=== PATIENT | male | born 1985 | race Caucasian/White ===

== ENCOUNTER 2021-09-18 18:24 | Observation (INO) | payer OTHER, SELFPAY ==
[2021-09-18] VITALS (9 sets, daily range): BP systolic 121–142; BP diastolic 73–90; PULSE 66–75; RESP 16–24; TEMP 36.6–36.7; O2SAT 96–99; BMI 33.4
--- NOTE | 2021-09-18 19:03 | DI.CT.S_ITS ---
PROCEDURE: CT HEAD/BRAIN WO CON INDICATIONS: Positive BE-FAST, Stroke symptoms TECHNIQUE: Noncontrast 4.5 mm thick angled axial sections acquired from the foramen magnum to the vertex, with coronal and sagittal reformats. For radiation dose reduction, the following was used: automated exposure control, adjustment of mA and/or kV according to patient size. COMPARISON: None. FINDINGS: Image quality: Excellent. CSF spaces: Basal cisterns are patent. No extra-axial fluid collections. Ventricles are normal in size and shape. Brain: No midline shift. No intracranial masses or hemorrhage. Jimenez-white matter interface is normal. Skull and face: Calvarium and visualized facial bones are intact, without suspicious lesions. Sinuses: Visualized sinuses and mastoids are clear. IMPRESSION: No acute intracranial disease process. Dictated by: Angela Jackson MD, PhD on 09/18/2021 at 19:24 Approved by: Angela Jackson MD, PhD on 09/18/2021 at 19:26
--- NOTE | 2021-09-18 19:03 | DI.CT.S_ITS ---
PROCEDURE: CT ANGIO HEAD AND NECK INDICATIONS: Possible stroke TECHNIQUE: After the administration of intravenous contrast, 1 mm thick sections acquired from the aortic arch through the [place] of [place]. Post-contrast 4.5 mm thick sections then re-acquired from the foramen magnum to the vertex. 3-dimensional jedovqj-zgeuhbdor-ohcztssuea (MIP) and/or volume rendering reformats were acquired of the central intracranial vasculature and neck separately. For radiation dose reduction, the following was used: automated exposure control, adjustment of mA and/or kV according to patient size. COMPARISON: None. FINDINGS: Image quality: Excellent. BRAIN: CSF spaces: Ventricles are normal in size and shape. Basal cisterns are patent. No extra-axial fluid collections. Brain: No midline shift. No intracranial bleeds or masses. Jimenez-white matter interface appears intact. Skull and face: Calvarium and facial bones appear intact, without suspicious lesions. Orbits appear normal. Sinuses: Mucosal thickening noted in the right maxillary sinus. The mastoids are clear. HEAD CT ANGIOGRAPHY: Anterior circulation: Intracranial internal carotid arteries are normal in size and flow. The flow within the paired anterior cerebral arteries is normal and symmetric. The flow within the middle cerebral arteries is normal and symmetric. The anterior communicating artery is seen. No aneurysms are seen. Posterior circulation: Visualized portions of the vertebral arteries demonstrate normal caliber, and join to form a normal appearing basilar artery. Flow within the posterior cerebral arteries is normal and symmetric. No aneurysms are seen. Dural sinuses demonstrate normal postcontrast enhancement. NECK CT ANGIOGRAPHY: Carotid system: The great vessels demonstrate a conventional anatomy as they arise from the aortic arch. The origins of the common carotid arteries appear patent. The common carotid arteries demonstrate normal caliber and courses. The bifurcation regions are both widely patent. The internal carotid arteries demonstrate normal calibers and courses. Posterior circulation: The origins of the vertebral arteries both appear widely patent. The more superior extracranial portions of both vertebral arteries also demonstrate normal courses and calibers. They join to form a normal appearing basilar artery. Soft tissues: Visualized neck soft tissues demonstrate no suspicious abnormalities. Small patchy ground-glass opacities noted in the lungs bilaterally, right greater than left. Bones: No suspicious bony lesions. Visualized cervical spine appears normally aligned. IMPRESSION: 1. No acute intracranial disease process. 2. No large vessel occlusion, vascular stenosis, vascular dissection or aneurysm. 3. Patchy small ground-glass opacities in the lungs bilaterally, right greater than left. Finding is nonspecific can be related to atypical/viral pneumonia. Any quantitative measurements of stenosis were performed using NASCET criteria. Dictated by: Angela Jackson MD, PhD on 09/18/2021 at 19:34 Approved by: Angela Jackson MD, PhD on 09/18/2021 at 19:40
--- NOTE | 2021-09-18 19:03 | DI.RAD.S_ITS ---
PROCEDURE: XR CHEST 1V INDICATIONS: Possible stroke TECHNIQUE: One view of the chest was acquired. COMPARISON: [facility], , CHEST 2 VIEW, 05/17/2017, 15:59. FINDINGS: Surgical changes and devices: None. Lungs and pleura: Lungs are clear. No pleural effusions or pneumothorax. Mediastinum: Mediastinal contours appear normal. Heart size is normal. Bones and chest wall: No suspicious bony lesions. Overlying soft tissues appear unremarkable. IMPRESSION: No acute cardiopulmonary disease process. Dictated by: Angela Jackson MD, PhD on 09/18/2021 at 19:33 Approved by: Angela Jackson MD, PhD on 09/18/2021 at 19:34
[2021-09-18 19:22] LABS: Add Manual Diff / Slide Review NO; Basophils Absolute Auto 100 /uL (0-100); Basophils Percent Auto 1.5 % (0-2); Eosinophils Absolute Auto 200 /uL (0-450); Hematocrit 42.7 % (41-53); Hemoglobin 14.6 g/dL (13.5-17.5); Lymphocytes Absolute Auto 3000 /uL (1100-4500); Lymphocytes Percent Auto 34.5 % (25-40); Mean Corpuscular HGB Conc 34.2 % (30-36); Mean Corpuscular Hemoglobin 30.9 PG (26-34); Mean Corpuscular Volume 90.1 fL (80-100); Monocytes Absolute Auto 600 /uL (0-900); Neutrophils Absolute Auto 4800 /uL (1500-7000); Platelet Count 256 X10^3/uL (150-400); Red Blood Cell Count 4.74 X10^6/uL (4.5-5.9); Red Cell Distribution Width 13.1 % (11.6-14.8); White Blood Cell Count 8.7 X10^3/uL (4.5-11.0)
[2021-09-18 19:30] LABS: Prothrombin Time 11.1 SECONDS (10.1-12.7)
[2021-09-18 19:32] LABS: PTT Partial Thromboplastin Tim 30 SECONDS (26.4-36.2)
[2021-09-18 19:34] LABS: Alanine Aminotransferase 16 IU/L (<50); Albumin 4.5 g/dL (3.5-5.0); Albumin Globulin Ratio 1.4 (1.0-2.8); Alkaline Phosphatase 72 U/L (38-126); Aspartate Aminotransferase 27 IU/L (17-59); BUN Creatinine Ratio 11.2 (6-22); Bilirubin Total 0.5 mg/dL (0.2-1.3); Blood Urea Nitrogen 13 mg/dL (9-20); Calcium 8.6 mg/dL (8.4-10.2); Carbon Dioxide 28 mmol/L (22-32); Chloride 104 mmol/L (98-107); Creatine Kinase 209 U/L (55-170); Estimated Glomerular Filt Rate > 60 mL/min (>60); Globulin 3.3 g/dL (1.7-4.1); Glucose 96 mg/dL (70-100); HEMOLYSIS < 15 (0-50); Magnesium 2.3 mg/dL (1.6-2.3); Potassium 3.9 mmol/L (3.4-5.1); Sodium 139 mmol/L (137-145); Total Protein 7.8 g/dL (6.3-8.2)
[2021-09-18 19:45] LABS: Troponin I < 0.012 ng/mL (0.01-0.034)
[2021-09-18 19:49] LABS: CKMB % Relative Index 0.6 % (1.5-5.0); Creatine Kinase MB 1.19 ng/mL (<2.37)
[2021-09-18 20:04] LABS: COVID19 -Nasal RAPID Negative (Negative)
--- NOTE | 2021-09-18 20:06 | ED.NEUROSD ---
HPI - Neuro Symptoms/Deficit General Chief Complaint: Neuro Symptoms/Deficit Stated Complaint: Possible TIA Time Seen by Provider: 09/18/21 19:03 Source: patient Mode of arrival: Ambulatory History of Present Illness HPI Narrative: 35-year-old male nonsmoker with noncontributory medical history presents with his for evaluation of neurologic symptoms this morning. He had gone to sleep in his normal state of health and woke up in his normal state of health. 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 He did not have any symptoms of dizziness, weakness or lightheadedness nor of chest pain or unexplained shortness of breath during the fitness test. When he was attempting to drive home he had to tube puller because he noticed that his left arm was numb, tingling and not working appropriately. Additionally he was having trouble speaking, stating he knew what he wanted to say but words were not coming out. His states that he had left-sided facial weakness and slurring of words as well. Patient does have a history of headaches previously but states he was not having pain during this episode. His symptoms had resolved many hours prior to his arrival. He is not activated as a code stroke given lack of symptoms on arrival On Anticoagulants: No Related Data Home Medications Medication Instructions Recorded Confirmed No Known Home Medications 09/19/21 09/19/21 Allergies Allergy/AdvReac Type Severity Reaction Status Date / Time No Known Allergies Allergy Uncoded 08/14/17 12:50 Review of Systems Review of Systems Narrative: GENERAL: Denies chills, fatigue, malaise, fever, sweats. HEENT: Denies sinus pain, ear pain, sore throat, difficulty swallowing, dizziness. RESPIRATORY: Denies dyspnea, cough, wheezing, hemoptysis, sputum. CARDIOVASCULAR: Denies chest pain, palpitations, orthopnea, edema, GASTROINTESTINAL: Denies nausea, vomiting, abdominal pain, diarrhea, constipation, melena. : Denies dysuria, frequency, incontinence, hematuria, urinary retention. MUSCULOSKELETAL: denies weakness, joint pain, or bony pain SKIN: Denies rash, skin lesions, or other NEUROLOGIC: See HPI PSYCHIATRIC: No concerning psychosocial issues. 12 point review of systems is negative except for those stated above Hematologic/Lymphatic On Anticoagulants: No Patient History Social History household members: spouse and children Smoking Status: Never smoker alcohol intake: current Exam Narrative Exam Narrative: GENERAL: [35 year old patient appears stated age. Well-developed patient, in mild distress. HEAD: Atraumatic. Normocephalic. EYES: Pupils equal round and reactive. Extraocular motions intact. No scleral icterus. No injection or drainage. ENT: Nose without bleeding, purulent drainage. Throat without erythema, tonsillar hypertrophy or exudate. Airway patent. NECK: Trachea midline. Non tender CARDIOVASCULAR: Regular rate and rhythm without murmurs, gallops, or rubs. RESPIRATORY: Clear to auscultation. Breath sounds equal bilaterally. No wheezes, rales, or rhonchi. GASTROINTESTINAL: Abdomen soft, non-tender, nondistended. EXTREMITIES: No edema or joint tenderness. BACK: Nontender without deformity or crepitance. No flank tenderness. NEURO: AOx3. SKIN: No rash or erythema of visible areas Initial Vital Signs Initial Vital Signs: Vital Signs Temperature 98.1 F 09/18/21 18:27 Pulse Rate 75 09/18/21 18:27 Respiratory Rate 18 09/18/21 18:27 Blood Pressure 142/90 H 09/18/21 18:27 Pulse Oximetry 98 09/18/21 18:27 Course Orders Ordered: ED Orders 09/18/21 19:03 CT angio head and neck Stat CT head/brain wo con Stat XR chest 1V Stat 09/18/21 19:05 Complete Blood Count AUTO DIFF Stat Comprehensive Metabolic Panel Stat Magnesium Stat Partial Thromboplastin Time Stat Prothrombin Time INR Stat Troponin & CK Cardiac Panel Stat 09/18/21 19:08 COVID19 -Nasal RAPID/Pre-Proc Stat Acetaminophen (Acetaminophen 325 Mg Tablet) 650 mg PO Q6HR PRN PRN Reason: pain, fever Aspirin (Aspirin Ec 81 Mg Tablet) 81 mg PO DAILY [facility] Pravastatin Sodium (Pravastatin 20 Mg Tablet) 40 mg PO BEDTIME CHLOE Last Admin: 09/18/21 22:29 Dose: 40 mg Documented by: CORAZON Vital Signs Vital signs: Vital Signs - 8 hr 09/18/21 19:00 09/18/21 19:30 09/18/21 20:00 Pulse Rate 69 66 67 Respiratory Rate 20 19 Pulse Oximetry 99 98 98 MDM - Neuro Symptoms/Deficit Lab Data Result diagrams: 09/18/21 19:05 09/18/21 19:05 Labs: Lab Results 09/18/21 09/18/21 09/18/21 Range/Units 19:05 19:05 19:05 WBC 8.7 (4.5-11.0) X10^3/uL RBC 4.74 (4.5-5.9) X10^6/uL Hgb 14.6 (13.5-17.5) g/dL Hct 42.7 (41-53) % MCV 90.1 (80-100) fL MCH 30.9 (26-34) PG MCHC 34.2 (30-36) % RDW 13.1 (11.6-14.8) % Plt Count 256 (150-400) X10^3/uL Neut % (Auto) 55.0 (50-75) % Lymph % (Auto) 34.5 (25-40) % Lucas % (Auto) 7.0 (3-14) % Eos % (Auto) 2.0 (2-4) % Baso % (Auto) 1.5 (0-2) % Neut # (Auto) 4800 (7281-1800) /uL Lymph # (Auto) 3000 (0963-7995) /uL Lucas # (Auto) 600 (0-900) /uL Eos # (Auto) 200 (0-450) /uL Baso # (Auto) 100 (0-100) /uL PT 11.1 (10.1-12.7) SECONDS INR 1.0 (0.9-1.3) APTT 30 (26.4-36.2) SECONDS Sodium 139 (137-145) mmol/L Potassium 3.9 (3.4-5.1) mmol/L Chloride 104 (98-107) mmol/L Carbon Dioxide 28 (22-32) mmol/L BUN 13 (9-20) mg/dL Creatinine 1.16 (0.66-1.25) mg/dL Estimated GFR > 60 (>60) mL/min BUN/Creatinine Ratio 11.2 (6-22) Glucose 96 (70-100) mg/dL Calcium 8.6 (8.4-10.2) mg/dL Magnesium 2.3 (1.6-2.3) mg/dL Total Bilirubin 0.5 (0.2-1.3) mg/dL AST 27 (17-59) IU/L ALT 16 (<50) IU/L Alkaline Phosphatase 72 (38-126) U/L Total Creatine Kinase 209 H (55-170) U/L CK-MB (CK-2) 1.19 (<2.37) ng/mL CK-MB (CK-2) Rel Index 0.6 L (1.5-5.0) % Troponin I < 0.012 (0.01-0.034) ng/mL Total Protein 7.8 (6.3-8.2) g/dL Albumin 4.5 (3.5-5.0) g/dL Globulin 3.3 (1.7-4.1) g/dL Albumin/Globulin Ratio 1.4 (1.0-2.8) SARS-CoV-2 (PCR) (Negative) 09/18/21 Range/Units 19:08 WBC (4.5-11.0) X10^3/uL RBC (4.5-5.9) X10^6/uL Hgb (13.5-17.5) g/dL Hct (41-53) % MCV (80-100) fL MCH (26-34) PG MCHC (30-36) % RDW (11.6-14.8) % Plt Count (150-400) X10^3/uL Neut % (Auto) (50-75) % Lymph % (Auto) (25-40) % Lucas % (Auto) (3-14) % Eos % (Auto) (2-4) % Baso % (Auto) (0-2) % Neut # (Auto) (6441-8088) /uL Lymph # (Auto) (7895-9261) /uL Lucas # (Auto) (0-900) /uL Eos # (Auto) (0-450) /uL Baso # (Auto) (0-100) /uL PT (10.1-12.7) SECONDS INR (0.9-1.3) APTT (26.4-36.2) SECONDS Sodium (137-145) mmol/L Potassium (3.4-5.1) mmol/L Chloride (98-107) mmol/L Carbon Dioxide (22-32) mmol/L BUN (9-20) mg/dL Creatinine (0.66-1.25) mg/dL Estimated GFR (>60) mL/min BUN/Creatinine Ratio (6-22) Glucose (70-100) mg/dL Calcium (8.4-10.2) mg/dL Magnesium (1.6-2.3) mg/dL Total Bilirubin (0.2-1.3) mg/dL AST (17-59) IU/L ALT (<50) IU/L Alkaline Phosphatase (38-126) U/L Total Creatine Kinase (55-170) U/L CK-MB (CK-2) (<2.37) ng/mL CK-MB (CK-2) Rel Index (1.5-5.0) % Troponin I (0.01-0.034) ng/mL Total Protein (6.3-8.2) g/dL Albumin (3.5-5.0) g/dL Globulin (1.7-4.1) g/dL Albumin/Globulin Ratio (1.0-2.8) SARS-CoV-2 (PCR) Negative (Negative) Imaging Data CT scan - head: Radiologist's Impression: [place] [address] CT Scan Report Signed Patient: Valdemar Wan MR#: [id number] : 1985 Acct:[id number] Age/Sex: 35 / M Date of Service: 09/18/21 Loc: Accession Number: [id number] ?? Procedure: CT head/brain wo con Ordering Provider: Aubrey Villatoro D.O. PROCEDURE:? CT HEAD/BRAIN WO CON ? INDICATIONS:? Positive BE-FAST, Stroke symptoms ? TECHNIQUE:? Noncontrast 4.5 mm thick angled axial sections acquired from the foramen magnum to the vertex, with coronal and sagittal reformats.? For radiation dose reduction, the following was used:? automated exposure control, adjustment of mA and/or kV according to patient size.? ? COMPARISON:? None. ? FINDINGS:? Image quality:? Excellent.? ? CSF spaces:? Basal cisterns are patent.? No extra-axial fluid collections.? Ventricles are normal in size and shape.? ? Brain:? No midline shift.? No intracranial masses or hemorrhage.? Jimenez-white matter interface is normal.? ? Skull and face:? Calvarium and visualized facial bones are intact, without suspicious lesions.? ? Sinuses:? Visualized sinuses and mastoids are clear.? ? IMPRESSION:? No acute intracranial disease process. ? ? Dictated by: Angela Jackson MD, PhD on 09/18/2021 at 19:24 ? ? Approved by: Angela Jackson MD, PhD on 09/18/2021 at 19:26 ? CTA - brain/neck: Radiologist's Impression: [place] [address] CT Scan Report Signed Patient: Valdemar Wan MR#: [id number] : 1985 Acct:[id number] Age/Sex: 35 / M Date of Service: 09/18/21 Loc: ED Accession Number: [id number] ?? Procedure: CT head/brain wo con Ordering Provider: Aubrey Villatoro D.O. PROCEDURE:? CT HEAD/BRAIN WO CON ? INDICATIONS:? Positive BE-FAST, Stroke symptoms ? TECHNIQUE:? Noncontrast 4.5 mm thick angled axial sections acquired from the foramen magnum to the vertex, with coronal and sagittal reformats.? For radiation dose reduction, the following was used:? automated exposure control, adjustment of mA and/or kV according to patient size.? ? COMPARISON:? None. ? FINDINGS:? Image quality:? Excellent.? ? CSF spaces:? Basal cisterns are patent.? No extra-axial fluid collections.? Ventricles are normal in size and shape.? ? Brain:? No midline shift.? No intracranial masses or hemorrhage.? Jimenez-white matter interface is normal.? ? Skull and face:? Calvarium and visualized facial bones are intact, without suspicious lesions.? ? Sinuses:? Visualized sinuses and mastoids are clear.? ? IMPRESSION:? No acute intracranial disease process. ? ? Dictated by: Angela Jackson MD, PhD on 09/18/2021 at 19:24 ? ? Approved by: Angela Jackson MD, PhD on 09/18/2021 at 19:26 ? Stroke Core Measures Exclusion Criteria TPA in CVA: Symptom Onset >3 or 4.5 Hours Discharge Plan Departure Patient Disposition: Admitted As Inpatient Clinical Impression: Brain TIA Admit Date/Time: 09/18/21 20:20 Admit Provider: Steve Norwood
--- NOTE | 2021-09-18 20:32 | DI.MRI.S_ITS ---
PROCEDURE: MR HEAD/BRAIN WO CON INDICATIONS: tia TECHNIQUE: Noncontrast axial T1 spin echo, axial T2 fast spin echo, sagittal and axial FLAIR, coronal T2 fast spin echo, axial gradient echo, axial diffusion and ADC through the brain. COMPARISON: [facility], CT, CT ANGIO HEAD AND NECK, 09/18/2021, 19:04. [facility], CT, CT HEAD/BRAIN WO CON, 09/18/2021, 19:04. FINDINGS: Image quality: Excellent. CSF Spaces: Basal cisterns are patent. No extra-axial fluid collections. Ventricles are normal in size and shape. Brain: No intracranial masses or hemorrhage. Jimenez/white matter interface is normal. Brainstem appears normal. Small foci of restricted diffusion noted in the right frontal and parietal lobes compatible with acute lacunar infarcts. No chronic ischemic insults. Normal intravascular flow voids are present. Skull and face: Calvarium has normal marrow signal. Orbits appear normal. Sinuses: Mild mucosal thickening noted in the floor of the right maxillary sinus. The mastoids are clear. IMPRESSION: Multiple small acute lacunar infarcts involving the right frontal and parietal lobes. No intracranial hemorrhage. Dictated by: Angela Jackson MD, PhD on 09/19/2021 at 7:57 Approved by: Angela Jackson MD, PhD on 09/19/2021 at 8:01
--- NOTE | 2021-09-18 21:22 | DI.ECHO.S_ITS ---
[facility] +---------+ : : [address] [place] [place] : : : : [id number] : : : : Phone: [phone]+ Echocardiogram Report + + :Name: SALLY BERRY Study Date: 09/19/2021 Height: 68 in : :[facility] ReadingLocation: Weight: 220 lb : : Gender: Male BSA: 2.1 m2 : :: 1985 Age: 35 yrs BP: 136/84 mmHg: :Reason For Study: TIA : :Ordering Physician: JEFFREY, : :RUPINDER Performed By: Kimberly Stark : :Referring: RUPINDER MURPHY : + + Interpretation Summary 1) Normal left ventricular thickness, size, wall motion, and systolic function (EF 55-60%). 2) Normal right ventricular size and function. 3) No significant valvular abnormalities. 4) Injection of contrast documented no interatrial shunt. 5) No prior Echo available for comparison. Procedure: A two-dimensional transthoracic echocardiogram with color flow and Doppler was performed. The study quality was technically adequate. There is no prior echocardiogram noted for this patient. A saline contrast injection was performed to assess for cardiac shunting. The injection was performed through an intravenous line in the right arm. The patient was in sinus rhythm with heart rates between 53-63 bpm during the exam. Left Ventricle: The left ventricle is normal in size and wall thickness. The ejection fraction is estimated to be 55-60%. Left ventricular systolic function appears normal without focal wall motion abnormalities. Diastolic parameters suggest probable normal left ventricular diastolic function and normal filling pressures. Right Ventricle: The right ventricle is normal in size and function. Atria: The left atrial size is normal. Right atrial size is normal. There is no Doppler evidence for an interatrial shunt. Injection of contrast documented no interatrial shunt. Mitral Valve: The mitral valve is normal in structure and function. There is trace mitral regurgitation. Aortic Valve: The aortic valve is trileaflet. The aortic valve opens well. There is no aortic valve stenosis. No aortic regurgitation is present. Tricuspid Valve: The tricuspid valve is normal in structure and function. No tricuspid regurgitation. Pulmonary artery pressures cannot be estimated because of the lack of a measurable TR jet velocity. Pulmonic Valve: The pulmonic valve is not well visualized. There is no pulmonic valvular regurgitation. Great Vessels: The aortic root is normal size. The dimensions of the ascending aorta are normal. The IVC is of normal diameter and collapses greater than 50% with a sniff. This suggests a low right atrial pressure of 3 mm Hg. Pericardium/ Pleura There is no pericardial effusion. There is no pleural effusion. MMode/2D Measurements & Calculations LVIDd: 4.9 cm LVOT diam: 2.2 cm LVIDs: 3.2 cm Ao root diam: 3.6 cm FS: 34.0 % asc Aorta Diam: 3.2 cm IVSd: 0.78 cm Ao Arch Diam (Prox Trans): 2.5 cm LVPWd: 0.93 cm LV cruz. diameter/BSA (cm/m^2): 2.3 LV sys. diameter/BSA (cm/m^2): 1.5 LA A2 area: 19.0 cm2 RA long axis: 5.0 cm LA A4 area: 17.7 cm2 RA area: 15.9 cm2 LA length (vol): 5.4 cm RA vol: 42.7 ml LA vol: 52.7 ml RA : 20.1 ml/m2 LA vol index: 24.8 ml/m2 IVC diam: 1.4 cm RVD1 (basal): 3.9 cm TAPSE: 1.9 cm Doppler Measurements & Calculations Ao V2 max: 91.4 cm/sec LVOT Max Johnie: 86.2 cm/sec Ao V2 mean: 63.3 cm/sec LV V1 max P.0 mmHg Ao max P.3 mmHg LV V1 VTI: 17.8 cm Ao mean P.8 mmHg MARICRUZ(I,D): 2.8 cm2 Ao V2 VTI: 24.3 cm MARICRUZ(V,D): 3.6 cm2 sev ratio: 0.73 MARICRUZ indexed to BSA (cm^2/m^2): 1.3 MV E max johnie: 66.8 cm/sec PA V2 max: 87.2 cm/sec MV A max johnie: 40.7 cm/sec PA V2 mean: 59.1 cm/sec MV E/A: 1.6 PA mean P.6 mmHg Med Peak E' Johnie: 8.7 cm/sec PA pr(Accel): 13.9 mmHg E/E' med: 7.7 Lat Peak E' Johnie: 11.2 cm/sec E/E' lat: 6.0 E/e' average: 6.8 MV dec time: 0.21 sec SV(LVOT): 68.6 ml Reading Physician:09:48 AM
[2021-09-18] MEDS: PRAVASTATIN 20 MG TABLET 40 MG PO (22:29)
--- NOTE | 2021-09-19 02:48 | PM.HP.1 ---
History of Present Illness History of Present Illness Date Patient Seen: 09/18/21 Time Patient Seen: 22:00 Chief complaint: Possible TIA Narrative: Mr. Noe Wynn is a 35M with no significant PMH who presents with transient extremity numbness and aphasia. 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 He had no issues during the test. After this he began to have his middle and ring finger on his left hand start being numb and tingling. He noted the numbness was from his fingers to his shoulder. He noted motor inability to use his finger correctly. He also stated he was thinking clearly but could not say words correctly. His noted this as well and noted he had facial droop on the left. This lasted approximately 5-10 minutes before resolving on its own. He notes no similar episodes previously, however he has had two episodes this year of frontal headache that is associated with left eye monocular lower lateral quadrantanopia that is also transient. He has had no other neurologic symptoms during those episodes. In the ED workup was done, vitals notable for slightly high blood pressure at 142/90. Labs notable for WBC 8.7, hgb 14.6, plts 256. Creatinine 1.16. NIH 0. CT head showed no acute process. CTA head/neck showed no acute process. As his symptoms resolved hours before arrival and he had no neurologic symptoms when he arrived he was not activated as a code stroke. He was ordered for aspirin and statin. He was admitted for further treatment. Family history: grandparent with glioblastoma Social history: smoking, no subtance abuse, occasional alcohol Patient History Family & Social History Social History: household members spouse,children Prior Living Arrangements House Safety & Behavioral: Feels Safe in Current No Environment Been Physically Hurt or No Threatened By a Person Tobacco & Substance use: Smoking Status Never smoker alcohol intake current alcohol intake frequency holiday/special occasion Substance Use Type does not use Meds Home Medications and Allergies Home Medications Medication Instructions Recorded Confirmed Type No Known Home Medications 09/19/21 09/19/21 History Allergies Allergy/AdvReac Type Severity Reaction Status Date / Time No Known Allergies Allergy Uncoded 08/14/17 12:50 Review of Systems Review of Systems Narrative: 14 systems reviewed and negative aside from what is noted in HPI Exam Vital Signs (past 8 hours): - 09/18/21 19:00 09/18/21 19:30 09/18/21 20:00 Temperature Pulse Rate 69 66 67 Respiratory Rate 20 19 Blood Pressure Pulse Oximetry 99 98 98 09/18/21 20:28 09/18/21 20:30 09/18/21 21:00 Temperature Pulse Rate 67 67 66 Respiratory Rate 24 17 16 Blood Pressure 121/79 126/80 136/84 Pulse Oximetry 97 97 97 09/18/21 21:10 09/18/21 23:50 Temperature 97.9 F 97.9 F Pulse Rate 71 75 Respiratory Rate 18 18 Blood Pressure 131/80 127/73 Pulse Oximetry 96 97 Oxygen Delivery Method Room Air Oxygen Flow Rate 0 Narrative Exam Narrative: GEN: no acute distress HEENT: moist mucous membranes, PERRL NECK: trachea midline, no JVD CV: regular rate and rhyhtm, no murmurs PULM: clear bilaterally ABD: soft, nontender, nondistende, no organomegaly, normal bowel sounds EXT: warm and well perfused with no edema NEURO: awake, alert, oriented, no focal deficits noted, CN 2-12 intact, sensation intact, rapid alternating movements intact, heel to rainey normal, 5/5 strength upper and lower extremities Objective Labs Result Diagrams: 09/19/21 04:18 09/19/21 04:18 Labs: Laboratory Results - last 24 hr 09/18/21 09/18/21 09/18/21 19:05 19:05 19:05 WBC 8.7 RBC 4.74 Hgb 14.6 Hct 42.7 MCV 90.1 MCH 30.9 MCHC 34.2 RDW 13.1 Plt Count 256 Neut % (Auto) 55.0 Lymph % (Auto) 34.5 [place] % (Auto) 7.0 Eos % (Auto) 2.0 Baso % (Auto) 1.5 Neut # (Auto) 4800 Lymph # (Auto) 3000 [place] # (Auto) 600 Eos # (Auto) 200 Baso # (Auto) 100 PT 11.1 INR 1.0 APTT 30 Sodium 139 Potassium 3.9 Chloride 104 Carbon Dioxide 28 BUN 13 Creatinine 1.16 Estimated GFR > 60 BUN/Creatinine Ratio 11.2 Glucose 96 Calcium 8.6 Magnesium 2.3 Total Bilirubin 0.5 AST 27 ALT 16 Alkaline Phosphatase 72 Total Creatine Kinase 209 H CK-MB (CK-2) 1.19 CK-MB (CK-2) Rel Index 0.6 L Troponin I < 0.012 Total Protein 7.8 Albumin 4.5 Globulin 3.3 Albumin/Globulin Ratio 1.4 SARS-CoV-2 (PCR) 09/18/21 19:08 WBC RBC Hgb Hct MCV MCH MCHC RDW Plt Count Neut % (Auto) Lymph % (Auto) [place] % (Auto) Eos % (Auto) Baso % (Auto) Neut # (Auto) Lymph # (Auto) [place] # (Auto) Eos # (Auto) Baso # (Auto) PT INR APTT Sodium Potassium Chloride Carbon Dioxide BUN Creatinine Estimated GFR BUN/Creatinine Ratio Glucose Calcium Magnesium Total Bilirubin AST ALT Alkaline Phosphatase Total Creatine Kinase CK-MB (CK-2) CK-MB (CK-2) Rel Index Troponin I Total Protein Albumin Globulin Albumin/Globulin Ratio SARS-CoV-2 (PCR) Negative Assessment & Plan Assessment & Plan narrative: Mr. Noe Wynn presented to the hospital with sudden onset left sided upper extremity numbness, left hand clumsindess and dysarthria that resolved quickly. 1. Probable TIA, acute -patient's symptoms completely resolved by the time in ED -initial NIH 0 -CT head and CT angio head/neck with no acute process -order MRI to rule out CVA or other intracranial process, order ECHO -keep NIH q4 -order aspirin and statin -possible PT/OT speech eval -lipids and a1c to be checked CODE: Full Proxy: Joan Wynn, spouse I have utilized all available resources to reconcile the patient's home medications Time Spent With Patient Critical Care time: I spent a total of [] minutes of critical care time on this patient's care today; this time is exclusive of procedural time. Quality MIPS - Admit I confirm the patient?s Advance Care Plan is present, Code status is documented, Surrogate decision maker is in patient?s record [If Yes, STOP here]: Yes
[2021-09-19 03:22] VITALS: BP 104/57; PULSE 60; RESP 18; TEMP 36.6; O2SAT 99
[2021-09-19 05:06] LABS: Add Manual Diff / Slide Review NO; Basophils Absolute Auto 100 /uL (0-100); Eosinophils Absolute Auto 200 /uL (0-450); Eosinophils Percent Auto 3.4 % (2-4); Hematocrit 42.7 % (41-53); Hemoglobin 14.5 g/dL (13.5-17.5); Lymphocytes Absolute Auto 2600 /uL (1100-4500); Mean Corpuscular Hemoglobin 30.8 PG (26-34); Mean Corpuscular Volume 90.6 fL (80-100); Monocytes Absolute Auto 600 /uL (0-900); Monocytes Percent Auto 7.8 % (3-14); Neutrophils Absolute Auto 3700 /uL (1500-7000); Neutrophils Percent Auto 51.8 % (50-75); Platelet Count 237 X10^3/uL (150-400); Red Blood Cell Count 4.72 X10^6/uL (4.5-5.9); Red Cell Distribution Width 12.7 % (11.6-14.8); White Blood Cell Count 7.2 X10^3/uL (4.5-11.0)
[2021-09-19 05:16] LABS: BUN Creatinine Ratio 11.8 (6-22); Blood Urea Nitrogen 14 mg/dL (9-20); Calcium 8.5 mg/dL (8.4-10.2); Carbon Dioxide 26 mmol/L (22-32); Chloride 107 mmol/L (98-107); Estimated Glomerular Filt Rate > 60 mL/min (>60); Glucose 100 mg/dL (70-100); HEMOLYSIS < 15 (0-50); Potassium 3.9 mmol/L (3.4-5.1); Sodium 140 mmol/L (137-145)
[2021-09-19 05:49] LABS: Hemoglobin A1C% w Est Avg Glu 5.4 % (4.0-6.0)
--- NOTE | 2021-09-19 06:31 | PC.NURSE ---
Pt admitted for TIA, NIH o so far on tele, SR/SB. plan is for further testing this am and possibly discharge after that.
[2021-09-19 07:00] VITALS: BP 126/79; PULSE 70; RESP 18; TEMP 36.1; O2SAT 94
--- NOTE | 2021-09-19 08:58 | CM.DANOTE ---
DCP: Case received, EMR reviewed and met with patient. Introduced self and role. Was able to able to obtain information regarding patient's baseline activity status prior to hospitalization. DCP assessment completed with information currently available. Patient is a 35 year old male who admitted yesterday evening to the care of the hospitalist team. PCP: Fe MIRELES at [facility]. Payer: [employer]. Patient came to the hospital via private vehicle secondary to having numbness to his fingers, as well as trouble finding words. Upon arrival to the hospital, symptoms had subsided. Patient is currently diagnosed with TIA, but is to be having an MRI to rule out CVA. Met with patient in his room. He is alert and oriented, and is active duty [employer] at [facility], and active at his baseline. Patient resides in [place] with spouse, Joan. MRI is being done, and will work with P.T and O.T. Patient stated, he was feeling better, and the symptoms were gone. P: DCP to continue to follow. Patient will be working with therapy. Patient should be able to go home when he is deemed medically stable. Shellie Abreu RN/Clerical And Administrative Workers Discharge Planning/Care Management CM Discharge Assessment Start: 09/19/21 08:57 Freq: Status: Active Protocol: Document 09/19/21 08:57 (Rec: 09/19/21 08:58 [id number]) Discharge Planning Assessment Assigned Radiology Practitioner Assistant Shellie Abreu RN/Clerical And Administrative Workers Advance Directives? No History Provided By Patient,Significant Other, Medical Record Prior Living Arrangements House Household Members spouse,children Type of transporation used prior to Drives own vehicle admit Independent with ADL's Yes Is patient alert and oriented? Yes Caregiver for Another No Barriers to Discharge No Discharge Plan Home Transportation Arrangement Spouse Referrals Initiated None needed Whiteboard Updated in Patient Room with Yes name and ext. # of Radiology Practitioner Assistant Review Status In Process Next Review Type Continued Stay Review
[2021-09-19] MEDS: ASPIRIN EC 81 MG TABLET 162 MG PO (09:09)
--- NOTE | 2021-09-19 10:17 | OT.IP.EVAL ---
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 Social History Household Members spouse,children Living Arrangements House Number of Floors (Floors) Two Floors Number of Stairs To Enter/Railing? 3 steps with wide bilateral rails and 16 steps with left rail to the second floor. 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 Ind at all activities. Social History Household Members spouse,children Living Arrangements House Number of Floors (Floors) Two Floors Number of Stairs To Enter/Railing? 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 Patient/Caregiver Goals TO go home. OT Pain Assessment Pain When Pain Assessed At Rest Pain Present Pain Present Denied Pain M4 OT- IP ADL's Start: 09/19/21 10:18 Freq: Status: Active Protocol: Document 09/19/21 10:19 [facility] (Rec: 09/19/21 10:38 [facility] [id number]) OT LPT-Ydak-Civdhbx General Evaluation Self-Feeding Ability Independent OT ADL-Grooming General Evaluation Grooming Ability Independent OT ADL-Oral Care General Eval Oral Care Ability Independent OT ADL-Dressing General Eval Upper Body Dressing Ability Independent Lower Body Dressing Ability Independent OT ADL-Toileting General Evaluation Toileting Ability Independent Comments OT Toileting Comments Pt states has been able to independently use the toilet on his own. OT ADL-Bathing Comments OT Bathing Comments Not performed. M5 OT- IP IADL's Start: 09/19/21 10:18 Freq: Status: Active Protocol: Document 09/19/21 10:19 [facility] (Rec: 09/19/21 10:38 [facility] [id number]) OT-Instrumental Activities of Daily Living Home Safety Awareness Awareness of Need for Assistance at Home Good Awareness Ability to Problem Solve Emergency Able to Problem Solve Situations M6 OT- IP Functional Cognition Start: 09/19/21 10:18 Freq: Status: Active Protocol: Document 09/19/21 10:19 [facility] (Rec: 09/19/21 10:38 [facility] [id number]) Cognitive Factors Limiting Selfcare Function Cognitive Ability Level of Alertness Alert Patient Orientation Name,Age,Birthday,Month,Date, Year,Day of Week,Place, Situation Attention Span Ability Capable of Focused Attention, Capable of Sustained Attention Ability to Follow Commands Able to Follow Multi-Step Commands Memory Description No Deficits Noted Safety Awareness No Deficits Noted Problem Solving Ability No deficits Noted Cognitive Comments Cognitive Assessment Comments Pt scored 30 seconds on [place] Making Part B with one cue for correction as pt gong from letter to letter and then realized his mistake. Pt's score implies normal for visual attention, speed of processing, task switching, mental flexibility, and executive functioning. OT- Vision and Hearing OT- Hearing Assessment OT- Hearing Assessment WFL OT- Vision Assessment Visual Acuity WFL Visual Attentiveness WFL Occular Pursuits WFL M7 OT- IP Mobility and Balance Start: 09/19/21 10:18 Freq: Status: Active Protocol: Document 09/19/21 10:19 [facility] (Rec: 09/19/21 10:38 [facility] [id number]) OT- Bed Mobility Assessment Rolling Level of Assistance Independent Supine to Sit Supine to Sit Assist Independent Sit to Supine Sit to Supine Assist Independent Scooting Scooting to Edge of Bed Independent Scooting Up and Down in Bed Independent OT-Transfer Assessment Sit to and From Stand Sit to and from Stand Independent Transfers Transfer Ability Independent Technique Transfer Destination Bed Comments Mobility Comments Pt completely independent and able to walk in the hallway and complete 3 steps. OT- Gait Assessment Gait Gait Assistance Required: Independent OT- Balance Assessment Sitting Balance and Reactions Static Sitting Balance Ability Normal Dynamic Sitting Balance Ability Normal Standing Balance and Reactions Static Standing Balance Ability Normal Dynamic Standing Balance Ability Good M8 OT- IP Objective Assessments Start: 09/19/21 10:18 Freq: Status: Active Protocol: Document 09/19/21 10:19 [facility] (Rec: 09/19/21 10:38 [facility] [id number]) OT Gross Range of Motion Upper Extremity Range of Motion Assessment Within Functional Limits OT Strength Upper Extremity Strength Assessment Within Functional Limits OT- Coordination Assessment Comments Coordination Comments 9 hole peg test completed and initially right hand slower and then after repeating a third time both hand equal in speed and percentile for his age. Pt needing one cue to look at ths right chart- female versus male. OT-Muscle Tone Assessment Muscle Tone WNL Yes M9 OT- IP Assessment and Plan Start: 09/19/21 10:18 Freq: Status: Active Protocol: Document 09/19/21 10:19 [facility] (Rec: 09/19/21 10:38 [facility] [id number]) OT Summary Assessment and Plan Potential Rehabilitation Potential Excellent Analytic Complexity at Evaluation Low Summary Progress Towards Goals Progressing Toward Goals Assessment Summary Pt low complexity and per pt feels back at his baseline. Noted pt my have slight delay for hand coordination and for possible executive functioning as needing one cue to remember the directions however his time well within normal limits for [place] Making Part B. 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 Pt looking to go home with his when medically stable. Treatment Plan OT Treatment Plan Discharge Planning Discharge Recommendations OT Discharge Recommendations Home with Assistance Transportation Needs at Discharge Private Vehicle
--- NOTE | 2021-09-19 10:29 | PT.IIE ---
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 Ind at all activities. Social History Household Members spouse,children Living Arrangements House Number of Floors (Floors) Two Floors Number of Stairs To Enter/Railing? 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 PT-IP Current Condition Start: 09/19/21 10:19 Freq: Status: Active Protocol: Document 09/19/21 10:20 [facility] (Rec: 09/19/21 10:29 [id number]) Physical Therapy Current Condition Current Condition Evaluation Date 09/19/21 Treatment Diagnosis Lacunar infarct; hemiparesis Onset Date 09/18/21 M3 PT-IP Subjective Start: 09/19/21 10:19 Freq: Status: Active Protocol: Document 09/19/21 10:20 [facility] (Rec: 09/19/21 10:29 [id number]) Subjective Physical Therapy Visit Type Type Initial Evaluation Visit Start Time 09:33 Visit Stop Time 10:00 Total Visit Minutes 25 Physical Therapy Visit Comments Patient Comments Reports all symptoms resolved Patient Goals Return home, seek medical mgmt so he can return to his job. Therapy Pain Assessment Pain Present Pain Present Denied Pain M4 PT-IP Mobility and Gait Start: 09/19/21 10:19 Freq: Status: Active Protocol: Document 09/19/21 10:20 [facility] (Rec: 09/19/21 10:29 [id number]) PT-Bed Mobility Assessment Rolling Level of Assist Independent Supine to Sit Supine to Sit Independent Sit to Supine Sit to Supine Independent Scooting Scooting to Edge of Bed Independent Scooting Up and Down in Bed Independent PT-Transfer Assessment Sit to and From Stand Sit to and from Stand Independent Equipment Transfer Assistive Device None Transfers Transfer Destination Bed,Chair Transfer Technique Stand Step Pivot Transfer Ability Level of Assist Independent Gait Assessment Gait Gait Assistance Required: Independent Distance (Feet) 250 Assistive Devices Assistive Device None Comments Gait Comments Gait pattern fully WNLs. Able to heel/toe walk. No path deviation or LOB even with dual tasking. Stair Climbing Assessment Comments Stair Climbing Comments Stairs not assessed based on Pt functioning fully at an independent level. PT-Balance Assessment Sitting Balance and Reactions Static Sitting Balance Ability Normal Dynamic Sitting Balance Ability Normal Standing Balance and Reactions Static Standing Balance Ability Normal Dynamic Standing Balance Ability Normal Comments Other Balance Tests/Deviations/Treatment 4 Item DGI - 12/12 : M5 PT-IP Objective Assessments Start: 09/19/21 10:19 Freq: Status: Active Protocol: Document 09/19/21 10:20 [facility] (Rec: 09/19/21 10:29 [id number]) Orientation Orientation/Cognition Level of Alertness Alert Orientation Name,Age,Birthday,Month,Date, Year,Day of Week,Place, Situation Language Function Ability No Deficits Noted Safety Awareness Understands Safety Issues Memory Description No Deficits Noted Gross Range of Motion Upper Extremity ROM Assessment Within Functional Limits Lower Extremity ROM Assessment Within Functional Limits Strength Upper Extremity Strength Assessment Within Functional Limits Lower Extremity Strength Assessment Within Functional Limits Comments Strength Comments No focal weaknesses seen in BUE/BLE MMT screen. Coordination Assessment Gross Coordination Gross Coordination WNL Assessment Finger to Nose Test Normal Performance Pronation/Supination Test Normal Performance Foot Tapping Test Normal Performance Heel on [place] Test Normal Performance Sensation Assessment Sensation Gross Sensation WNL Light Touch Intact Proprioception (Position) Intact Comments Sensation Comments Sensation and proprioceptive testing of BLEs. Muscle Tone Muscle Tone WNL Yes Other Assessments Other Other Assessments No abnormal reflexes of BUE/ BLE including babinski and clonus testing. No pronator drift in UEs. M6 PT-IP Treatment Start: 09/19/21 10:19 Freq: Status: Active Protocol: Document 09/19/21 10:20 [facility] (Rec: 09/19/21 10:29 [id number]) Physical Therapy Treatment Education Education Provided Precautions,Safety Brace Education Patient,Caregiver Other Treatments Other Treatment Performed Pt and spouse reviewed risks of CVA, beFAST symptoms, seek medical attention immediately. M7 PT-IP Assessment and Plan Start: 09/19/21 10:19 Freq: Status: Active Protocol: Document 09/19/21 10:20 [facility] (Rec: 09/19/21 10:29 [id number]) PT Summary Assessment and Plan Potential Rehabilitation Potential Excellent Status of Condition at Evaluation Stable Summary Assessment Summary Pt admitted with L sided UE numbness and impaired motor function of hand along with slurred speech. States symptoms lasted ~10 minutes. witnessed. He then proceeded to go to work for 6 hours before seeking medical attention. Pt reports an acute onset of migraines for last month. He has seen PCP and has referral to neurology for this already. 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 CLOF testing reveals no significant motor deficits, hemiparesis or abnormal tone/ motor control. His balance is intact. He is independent with all transfers and mobility. Recommend d/c home when medically appropriate. Frequency of Treatment Frequency Of Treatment Discharge Recommendations To Nursing Amount of Assist Needed Independent Discharge Recommendations PT Discharge Recommendations Home Transportation Needs at Discharge Private Vehicle
[2021-09-19 10:54] VITALS: BP 134/86; PULSE 82; RESP 18; TEMP 36.3; O2SAT 96
[2021-09-19 11:24] VITALS: O2SAT 97
--- NOTE | 2021-09-19 11:40 | PM.DS.1 ---
History of Present Illness History of Present Illness Date Patient Seen: 09/19/21 Chief complaint: Possible TIA Narrative: History of Present Illness Date Patient Seen: 09/18/21 Time Patient Seen: 22:00 Chief complaint: Possible TIA Narrative: Mr. Noe Wynn is a 35M with no significant PMH who presents with transient extremity numbness and aphasia. 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 He had no issues during the test. After this he began to have his middle and ring finger on his left hand start being numb and tingling. He noted the numbness was from his fingers to his shoulder. He noted motor inability to use his finger correctly. He also stated he was thinking clearly but could not say words correctly. His noted this as well and noted he had facial droop on the left. This lasted approximately 5-10 minutes before resolving on its own. He notes no similar episodes previously, however he has had two episodes this year of frontal headache that is associated with left eye monocular lower lateral quadrantanopia that is also transient. He has had no other neurologic symptoms during those episodes. In the ED workup was done, vitals notable for slightly high blood pressure at 142/90. Labs notable for WBC 8.7, hgb 14.6, plts 256. Creatinine 1.16. NIH 0. CT head showed no acute process. CTA head/neck showed no acute process. As his symptoms resolved hours before arrival and he had no neurologic symptoms when he arrived he was not activated as a code stroke. He was ordered for aspirin and statin. He was admitted for further treatment. Family history: grandparent with glioblastoma Social history: smoking, no subtance abuse, occasional alcohol Discharge Providers Provider Date of admission: 09/18/21 20:20 Discharge Date: 09/19/21 Primary care physician: Darryl Greer MD Consults: 09/18/21 21:22 Consult to Occupational Therapy Evaluate & Treat Comment: Physician Instructions: Evaluate and treat Consult to Physical Therapy Evaluate & Treat Comment: Physician Instructions: Evaluate and Treat Consult to Speech Therapy Evaluate & Treat Comment: Physician Instructions: Evaluate and treat Discharge provider: Onelia Martinez DO Summary Hospital Course Discharge Diagnosis: ACUTE CVA. NOT INFARCT PER MRI OBESITY. BMI OF 34. CHANGES RECOMMENDED POSSIBLE HYPERLIPIDEMIA. DISCHARGE ON LIPITOR Hospital Course: THIS IS A VERY PLEASANT 35-YEAR-OLD MALE ADMITTED TO THE HOSPITAL WITH MULTIPLE SYMPTOMS SUSPICIOUS FOR POSSIBLE TIA VERSUS CVA. PATIENT WAS EVALUATED IN THE ER INITIAL CT SCAN WAS NEGATIVE FOR ANY ACUTE PROCESS. HOWEVER AN MRI AT THIS TIME HE IS CONFIRMING A LACUNAR INFARCT. ECHOCARDIOGRAM DID NOT SHOW ANY SIGNIFICANT CARDIAC PATHOLOGY. EF WAS FAIRLY STABLE ABOVE 60%. NO SIGNIFICANT VALVULOPATHY. LABS HAVE BEEN FAIRLY STABLE FOR HER VITAL SIGNS BEEN FAIRLY STABLE WELL. THIS TYPE OF INFARCT IS OFTEN ASSOCIATED WITH ELEVATED BLOOD PRESSURE WHICH HAS NOT BEEN SEEN HERE SINCE ADMISSION. IN ANY CASE, THIS DOES NOT RULE OUT COMPLETELY HYPERTENSIVE DISORDER PATIENT COULD HAVE A REVERSE WHITE COAT SYNDROME. PATIENT WILL BE STARTED ON LISINOPRIL 10 MG DAILY IN ANY CASE. \ HE WAS INSTRUCTED TO OBTAIN A BLOOD PRESSURE DEVICE TO CLOSELY MONITOR HIS VITAL SIGNS AND REPORT ANY SIGNIFICANT FINDING TO HIS PRIMARY CARE PHYSICIAN. PATIENT HAD A CTA OF THE NECK / HEAD WITHOUT SIGNIFICANT FINDINGS. HE HAS NO SIGNIFICANT NEUROLOGICAL DEFICITS FROM THE EVENT. PATIENT WILL HOWEVER NEED TO BE FURTHER EVALUATED BY NEUROLOGIST OUTPATIENT FOR FURTHER WORKUP INDICATED. THE EXACT CAUSE OF HIS EVENT IS UNCLEAR. HE WAS INSTRUCTED TO REFRAIN FROM WORKING ON CO HE IS CLEARED BY HIS NEUROLOGIST TO DO SO SAFELY. PATIENT WILL BE DISCHARGED ON ASPIRIN, LIPITOR, LISINOPRIL LOW DOSE. ADDITIONAL MANAGEMENT WILL BE DEFERRED TO HIS OUTPATIENT PROVIDERS. PATIENT TO FOLLOW WITH PRIMARY CARE PHYSICIAN WITHIN 3-7 DAYS. PRIMARY CARE PHYSICIAN TO REFER PATIENT TO NEUROLOGY ROUTINE 2-4 WEEKS. PATIENT TO AVOID TOBACCO PRODUCTS AVOID ALL ALCOHOL PRODUCTS TAKE MEDICATION PRESCRIBED CARDIAC DIET IS RECOMMENDED WITH LOW-FAT AND LOW-CHOLESTEROL ACTIVITIES TOLERATED Status at Discharge Cognitive/behavioral status at discharge: oriented Functional status at discharge: independent ambulation Overall status at discharge: patient is back to baseline Time Spent with Patient Time spent: Greater than 30 minutes Exam Vital Signs (past 8 hours): - 09/19/21 07:00 09/19/21 10:54 09/19/21 11:24 Temperature 96.9 F L 97.3 F L Pulse Rate 70 82 Respiratory Rate 18 18 Blood Pressure 126/79 134/86 Pulse Oximetry 94 96 97 Oxygen Delivery Method Room Air Oxygen Flow Rate 0 Narrative Exam Narrative: NO ACUTE DISTRESS. PATIENT IS ALERT ORIENTED X3. VITAL SIGNS STABLE HEAD ATRAUMATIC NORMOCEPHALIC NECK : SUPPLE WITHOUT ADENOPATHY NO CAROTID BRUITS EYE: EOMI, PERRLA, NORMAL CONJUNCTIVA; NO JAUNDICE CHEST: REGULAR RATE. NO RUBS. PMI IS NON DISPLACED. NO MURMURS; NORMAL S1-S2 PULMONARY: DECREASED BS OVER THE BASES. MILD BIBASILAR CRACKLES NOTED; NO INCREASED DULLNESS TO PERCUSSION ABDOMEN: SOFT. NONTENDER. NONDISTENDED. BOWEL SOUNDS ARE PRESENT IN ALL 4 QUADRANTS. NO MASS. EXTREMITIES: NO EDEMA.. NO CYANOSIS CLUBBING NOTED. NEURO: CRANIAL NERVES 2-12 GROSSLY INTACT. NO FOCAL NEUROLOGICAL DEFICIT NOTED. MSK: NORMAL RANGE OF MOTION FOR AGE. NO JOINT EFFUSION. SKIN: NORMAL FOR ETHNICITY; NO ECCHYMOSIS. NO LESION. GOOD TURGOR.; NO RASHES : NORMAL EXTERNAL GENITALIA. PSYCH : APPROPRIATE MOOD AND AFFECT. ALERT AWAKE ORIENTED X3 Objective Labs Result Diagrams: 09/19/21 04:18 09/19/21 04:18 Labs: Laboratory Results - last 24 hr 09/18/21 09/18/21 09/18/21 19:05 19:05 19:05 WBC 8.7 RBC 4.74 Hgb 14.6 Hct 42.7 MCV 90.1 MCH 30.9 MCHC 34.2 RDW 13.1 Plt Count 256 Neut % (Auto) 55.0 Lymph % (Auto) 34.5 Pickett % (Auto) 7.0 Eos % (Auto) 2.0 Baso % (Auto) 1.5 Neut # (Auto) 4800 Lymph # (Auto) 3000 Pickett # (Auto) 600 Eos # (Auto) 200 Baso # (Auto) 100 PT 11.1 INR 1.0 APTT 30 Sodium 139 Potassium 3.9 Chloride 104 Carbon Dioxide 28 BUN 13 Creatinine 1.16 Estimated GFR > 60 BUN/Creatinine Ratio 11.2 Glucose 96 Hemoglobin A1c Calcium 8.6 Magnesium 2.3 Total Bilirubin 0.5 AST 27 ALT 16 Alkaline Phosphatase 72 Total Creatine Kinase 209 H CK-MB (CK-2) 1.19 CK-MB (CK-2) Rel Index 0.6 L Troponin I < 0.012 Total Protein 7.8 Albumin 4.5 Globulin 3.3 Albumin/Globulin Ratio 1.4 SARS-CoV-2 (PCR) 09/18/21 09/19/21 09/19/21 19:08 04:18 04:18 WBC 7.2 RBC 4.72 Hgb 14.5 Hct 42.7 MCV 90.6 MCH 30.8 MCHC 34.0 RDW 12.7 Plt Count 237 Neut % (Auto) 51.8 Lymph % (Auto) 36.0 Pickett % (Auto) 7.8 Eos % (Auto) 3.4 Baso % (Auto) 1.0 Neut # (Auto) 3700 Lymph # (Auto) 2600 Pickett # (Auto) 600 Eos # (Auto) 200 Baso # (Auto) 100 PT INR APTT Sodium 140 Potassium 3.9 Chloride 107 Carbon Dioxide 26 BUN 14 Creatinine 1.19 Estimated GFR > 60 BUN/Creatinine Ratio 11.8 Glucose 100 Hemoglobin A1c Calcium 8.5 Magnesium Total Bilirubin AST ALT Alkaline Phosphatase Total Creatine Kinase CK-MB (CK-2) CK-MB (CK-2) Rel Index Troponin I Total Protein Albumin Globulin Albumin/Globulin Ratio SARS-CoV-2 (PCR) Negative 09/19/21 04:18 WBC RBC Hgb Hct MCV MCH MCHC RDW Plt Count Neut % (Auto) Lymph % (Auto) Pickett % (Auto) Eos % (Auto) Baso % (Auto) Neut # (Auto) Lymph # (Auto) Pickett # (Auto) Eos # (Auto) Baso # (Auto) PT INR APTT Sodium Potassium Chloride Carbon Dioxide BUN Creatinine Estimated GFR BUN/Creatinine Ratio Glucose Hemoglobin A1c 5.4 Calcium Magnesium Total Bilirubin AST ALT Alkaline Phosphatase Total Creatine Kinase CK-MB (CK-2) CK-MB (CK-2) Rel Index Troponin I Total Protein Albumin Globulin Albumin/Globulin Ratio SARS[facility]CoV[facility]2 (PCR) [facility] Social History household members: spouse and children Smoking Status: Never smoker alcohol intake: current Discharge Plan Discharge Plan Patient Disposition: Home Discharge orders & Medications Prescriptions: New atorvastatin [Lipitor] 40 mg tablet 40 mg PO BEDTIME Qty: 30 3RF aspirin 325 mg tablet 325 mg PO DAILY Qty: 30 3RF lisinopril 10 mg tablet 10 mg PO DAILY Qty: 30 3RF Follow up/Referrals: Miscellaneous,DoctorMD [Non-Staff] - Darryl Greer MD [Primary Care Provider] - Diet/Activity/Treatments Diet: Low-fat and Low-cholesterol Discharge Data Primary Care Provider: Darryl Greer Attending Provider: Steve Norwood
--- NOTE | 2021-09-19 12:00 | ST.IPSCREEN ---
Pt was reclined in bed with at bedside when STAFF PSYCHOLOGIST arrived. He exhibited speech sound production WNL and was 100% intelligible. Pt reported no difficulty with cognition or chewing/swallowing. He indicated some difficulty finding words he wants to say, but indicated it was no more than usual. He agreed to participate in swallow screen and oral motor exam. Oral motor exam completed and pt presented with symmetrical structures at rest and in motion. Pt's strength and ROM of tongue, jaw, and lips was WNL. Structure and function of oral mechanism appears WNL for the purposes of speech and swallowing. Pt was repositioned to upright position and swallow screen was completed with thin water through a straw cup. No overt signs or symptoms of aspiration were observed. Speech therapy is not indicated at this time as pt is WNL.
--- NOTE | 2021-09-19 14:11 | PC.NURSE ---
Pt is A&Ox3, VSS, afebrile on RA. Telemetry SR. He denies feeling any neurodeficits and NIH score is 0 this a.m. late morning he c/o a headache which is resolved with tylenol. He ambulates with steady gait clearing PT this a.m. MRI completed this a.m. MD at bedside discusses results with patient and recommending a follow up with neurologist. Pt verbalizes understanding of discharge medications, s/sx of worsening symtoms and to return to the ED, as well as follow up instructions. Per his request he is given results of ECHO and Images on disc of MRI. He is escorted to private vehicle with this a.m. at approximately 1230 with all his belongings for discharge home.
[2021-09-20 06:23] LABS: RPR Screen Non Reactive (Non Reactive)
== END 2021-09-19 12:30 | disposition home or self-care (01) ==
LOC: ED 19:03 → AC 20:21
PROVIDERS: Hospitalist; Admitting Provider Internal Medicine; Emergency Provider Emergency Medicine; Visit Provider Internal Medicine
DX: I63.81 Other cerebral infarction due to occlusion or stenosis of small artery (principal); E66.9 Obesity, unspecified; Z68.34 Body mass index [BMI] 34.0-34.9, adult; Z20.822 Contact with and (suspected) exposure to COVID-19
CPT/HCPCS: 36415; 70450; 70496; 70498; 70551; 71045; 80048; 80053; 82550; 82553; 83036; 83735; 84484; 85025; 85610; 85730; 86592; 87635; 93306; 94760; 97161; 97165; 97530; 99284; C9803; G0378; Q9967